=== PATIENT | female | born 1945 | race Caucasian/White ===

== ENCOUNTER → 2017-02-04 | Outpatient (CLI) | payer MEDICARE ==
[~2017-02-04] MED LIST: AMLO5TAB2 PO; ASPI-496 PO; AZEL137S4 NAS; CETI10CA PO; CHOL20003 PO; HYDR-3241 PO; NEBI5TAB2 PO; PANT40TA5 PO; PRAV40TA2 PO; TRIA10.8 NAS
== END | disposition home or self-care (01) ==
LOC: CFH 09:49
PROVIDERS: ATTEND Specialist
DX: Z13.820 Encounter for screening for osteoporosis (principal); C50.911 Malignant neoplasm of unspecified site of right female breast; M85.80 Other specified disorders of bone density and structure, unspecified site; M81.0 Age-related osteoporosis without current pathological fracture
CPT/HCPCS: 77080

== ENCOUNTER → 2017-05-13 | Outpatient (CLI) | payer MEDICARE ==
[~2017-05-13] MED LIST changes: +CHOL2000 PO; -CHOL20003 PO
== END | disposition home or self-care (01) ==
LOC: CFH 13:06
PROVIDERS: ATTEND Radiology Radiation Oncology
DX: Z12.31 Encounter for screening mammogram for malignant neoplasm of breast (principal); Z85.3 Personal history of malignant neoplasm of breast; Z98.890 Other specified postprocedural states
CPT/HCPCS: G0202

== ENCOUNTER → 2017-07-07 | Outpatient (CLI) | payer MEDICARE | END | disposition home or self-care (01) | LOC: ROC 12:52 | PROVIDERS: ATTEND Radiology Radiation Oncology | DX: C50.411 Malignant neoplasm of upper-outer quadrant of right female breast (principal) | CPT/HCPCS: G0463 ==

== ENCOUNTER → 2018-05-15 | Outpatient (CLI) | payer MEDICARE | END | disposition home or self-care (01) | LOC: CFH 09:38 | PROVIDERS: ATTEND Radiology Radiation Oncology | DX: Z12.31 Encounter for screening mammogram for malignant neoplasm of breast (principal); Z85.3 Personal history of malignant neoplasm of breast | CPT/HCPCS: 77063; 77067 ==

== ENCOUNTER → 2018-07-14 | Outpatient (CLI) | payer MEDICARE ==
[~2018-07-14] MED LIST changes: -AMLO5TAB2 PO; +AMLO5TAB7 PO
== END | disposition home or self-care (01) ==
LOC: ROC 08:40
PROVIDERS: ATTEND Radiology Radiation Oncology
DX: C50.411 Malignant neoplasm of upper-outer quadrant of right female breast (principal)
CPT/HCPCS: G0463

== ENCOUNTER → 2019-02-21 | Outpatient (CLI) | payer MEDICARE ==
[~2019-02-21] MED LIST changes: +AMLO-150 PO; -AMLO5TAB7 PO; -NEBI5TAB2 PO; +NEBI5TAB3 PO
== END | disposition home or self-care (01) ==
LOC: CFH 10:16
PROVIDERS: ATTEND Internal Medicine Hematology & Oncology
DX: M85.88 Other specified disorders of bone density and structure, other site (principal); C50.911 Malignant neoplasm of unspecified site of right female breast; Z78.0 Asymptomatic menopausal state
CPT/HCPCS: 77080

== ENCOUNTER → 2019-04-19 | Outpatient (CLI) | payer MEDICARE | END | disposition home or self-care (01) | LOC: CVU 13:26 | PROVIDERS: ATTEND Internal Medicine Cardiovascular Disease | DX: I36.1 Nonrheumatic tricuspid (valve) insufficiency (principal); I11.9 Hypertensive heart disease without heart failure; I25.10 Atherosclerotic heart disease of native coronary artery without angina pectoris; E78.5 Hyperlipidemia, unspecified; Z85.3 Personal history of malignant neoplasm of breast | CPT/HCPCS: 0399T; 93306 ==

== ENCOUNTER 2019-05-17 08:46 | Outpatient (CLI) | payer MEDICARE ==
[2019-05-17] MEDS ORDERED: REGADENOSON 0.4 MG/5 ML SYRINGE ONE (12:59)
== END 2019-05-17 23:59 | disposition home or self-care (01) ==
LOC: CFH 08:46
PROVIDERS: ATTEND Internal Medicine Cardiovascular Disease
DX: I10 Essential (primary) hypertension (principal); I25.10 Atherosclerotic heart disease of native coronary artery without angina pectoris
CPT/HCPCS: 78452; 93017; A9502; J2785

== ENCOUNTER 2019-06-04 09:34 | Outpatient (CLI) | payer MEDICARE | END 2019-06-04 23:59 | disposition home or self-care (01) | LOC: CFH 09:34 | PROVIDERS: ATTEND Radiology Radiation Oncology | DX: Z12.31 Encounter for screening mammogram for malignant neoplasm of breast (principal); I10 Essential (primary) hypertension | CPT/HCPCS: 77063; 77067 ==

== ENCOUNTER 2020-07-31 07:46 | Outpatient (CLI) | payer MEDICARE ==
[~2020-07-31 07:46] MED LIST changes: -PANT40TA5 PO; +PANT40TA6 PO
== END 2020-07-31 23:59 | disposition home or self-care (01) ==
LOC: ROC 07:46
PROVIDERS: ATTEND Radiology Radiation Oncology
DX: Z08 Encounter for follow-up examination after completed treatment for malignant neoplasm (principal); Z85.3 Personal history of malignant neoplasm of breast
CPT/HCPCS: 99213; G0463

== ENCOUNTER → 2021-05-05 | Outpatient (CLI) | payer MEDICARE ==
[~2021-05-05] MED LIST changes: +REGADENOSON 0.4 MG/5 ML SYRINGE ONE
== END | disposition home or self-care (01) ==
LOC: CFH 12:06
PROVIDERS: ATTEND Internal Medicine Cardiovascular Disease
DX: I10 Essential (primary) hypertension (principal); I25.10 Atherosclerotic heart disease of native coronary artery without angina pectoris
CPT/HCPCS: 78452; 93017; A9502; J2785

== ENCOUNTER 2021-06-10 10:35 | Day surgery (SDC) | payer MEDICARE ==
[~2021-06-10] VITALS: Ht 167.6 cm; Wt 84.0 kg
[~2021-06-10 10:35] MED LIST changes: -REGADENOSON 0.4 MG/5 ML SYRINGE ONE
[2021-06-10 11:22] VITALS: BP 114/68
[2021-06-10] MEDS ORDERED: SODIUM CHLORIDE 0.9% 1,000 ML IV SCH (11:30)
[2021-06-10] MEDS ORDERED: CALC-534 PO (11:44)
[2021-06-10] MEDS ORDERED: ROSU10TA2 PO (11:44)
[2021-06-10] MEDS ORDERED: VERAPAMIL 2.5 MG/ML, 2ML ONE (11:52)
[2021-06-10] MEDS ORDERED: HEPARIN 1,000 UNITS/ML, 10ML ONE (11:52)
[2021-06-10] MEDS ORDERED: LIDOCAINE-MPF 1%, 5ML ONE (11:52)
[2021-06-10] MEDS ORDERED: BIVALIRUDIN 250 MG ONE (11:52)
[2021-06-10] MEDS ORDERED: MIDAZOLAM 1 MG/ML, 5ML ONE (11:52)
[2021-06-10] MEDS ORDERED: FENTANYL PF 100 MCG/2ML ONE (11:52)
[2021-06-10 11:54] LABS: BASOPHILS % (AUTO) 1 % (0-1); EOSINOPHILS % (AUTO) 3 % (1-7); LYMPHOCYTES % (AUTO) 27 % (22-44); MEAN CORPUSCULAR HEMOGLOBIN 34.8 pg (27.0-34.8); MEAN CORPUSCULAR HGB CONC 34.6 g/dL (32.4-35.8); MEAN PLATELET VOLUME 6.4 fL (7.4-10.4); MONOCYTES % (AUTO) 9 % (2-9); NEUTROPHILS % (AUTO) 60 % (42-75); PLATELET COUNT 143 x10^3/uL (130-400); RED CELL DISTRIBUTION WIDTH 13.3 % (9.6-15.2)
[2021-06-10] MEDS ORDERED: PLEASE ENTER HEIGHT AND WEIGHT MC SCH (12:00)
[2021-06-10 12:03] LABS: ANION GAP 4 mmol/L (5-15); CALCIUM 8.4 mg/dL (8.5-10.1); CHLORIDE 110 mmol/L (98-107); CREATININE 0.87 mg/dL (0.55-1.02)
[2021-06-10] MEDS ORDERED: LIDOCAINE 2%, 20ML ONE (13:01)
== END 2021-06-10 16:32 | disposition home or self-care (01) ==
LOC: CACL 10:35
PROVIDERS: ATTEND Internal Medicine Cardiovascular Disease
DX: I25.119 Atherosclerotic heart disease of native coronary artery with unspecified angina pectoris (principal); I25.83 Coronary atherosclerosis due to lipid rich plaque; I10 Essential (primary) hypertension; E78.2 Mixed hyperlipidemia; J45.909 Unspecified asthma, uncomplicated; Z79.82 Long term (current) use of aspirin; Z79.899 Other long term (current) drug therapy; Z87.891 Personal history of nicotine dependence; Z91.018 Allergy to other foods; Z91.013 Allergy to seafood
CPT/HCPCS: 36415; 75630; 80048; 85025; 93458; 99156; 99157; C1760; C1769; C1894; J2250; J3010; Q9967; 75625; J0583; J1644